=== PATIENT | male | born 1990 | race Caucasian/White ===

== ENCOUNTER → 2016-06-27 | Outpatient (CLI) | payer OTHER ==
[2016-01-01 16:31] VITALS: BP 136/82
[~2016-06-27] MED LIST: ERYT1OIN6 EACHEYE; HYDR-971 PO
--- NOTE | 2016-06-27 16:46 | RAD ---
Testicular ultrasound History: Left scrotal and inguinal pain. Comparison: None. Findings: Right testicle measures 5.6 x 3.3 x 3.0 cm. Right testicle demonstrates normal parenchymal echogenicity. The right epididymis is unremarkable. Left testicle measures 5.5 x 2.9 x 3.1 cm. Left testicle demonstrates normal parenchymal echogenicity. The left epididymis is unremarkable. Doppler imaging demonstrates normal flow to both testicles, without evidence of torsion. Additional grayscale imaging was performed in the left inguinal region without and with Valsalva maneuver. No hernia is identified. Impression: 1. No evidence of testicular mass or torsion. 2. No ultrasound evidence of left inguinal hernia.
== END | disposition home or self-care (01) ==
LOC: US 15:09
PROVIDERS: ATTEND Internal Medicine
DX: R10.30 Lower abdominal pain, unspecified (principal); N50.82 Scrotal pain
CPT/HCPCS: 76870

== ENCOUNTER 2016-10-14 10:48 | Emergency (ER) | payer OTHER ==
[~2016-10-14] VITALS: Ht 170.2 cm; Wt 81.6 kg
[2016-10-14 11:20] VITALS: BP 147/73
[2016-10-14] MEDS ORDERED: KETOROLAC TROMETHAMINE 60 MG/2 ML INJ. IM ONE (11:30)
--- NOTE | 2016-10-14 11:47 | RAD ---
Indication pain for several weeks. AP oblique and lateral views of the right foot were obtained. No acute or significant bony finding is seen. If there is concern for a stress fracture or bone scan may be useful. IMPRESSION: No acute bony finding
[2016-10-14] MEDS ORDERED: NAPR500T PO (11:52)
--- NOTE | 2016-10-14 11:53 | PHYS DOC ---
Past Medical History Past Medical History: Other Additional Past Medical Histor: ADHD Past Surgical History: Other Additional Past Surgical Histo: tumor removal Alcohol Use: None Drug Use: None Adult General Chief Complaint Chief Complaint: FOOT INJURY PAIN HPI HPI Patient is a 26 year old male presents to the emergency department with a two- month history of right foot pain. Patient states he was playing soccer running when he felt a pop in the foot 2 months ago. He states he's had persistent pain is here now seeking further evaluation. Review of Systems Review of Systems Constitutional: Denies fever or chills [] Eyes: Denies change in visual acuity, redness, or eye pain [] HENT: Denies nasal congestion or sore throat [] Respiratory: Denies cough or shortness of breath [] Cardiovascular: No additional information not addressed in HPI [] GI: Denies abdominal pain, nausea, vomiting, bloody stools or diarrhea [] : Denies dysuria or hematuria [] Musculoskeletal: Right foot pain Integument: Denies rash or skin lesions [] Neurologic: Denies headache, focal weakness or sensory changes [] Endocrine: Denies polyuria or polydipsia [] Current Medications Current Medications Current Medications Medications (Trade) Dose Ordered Sig/Manuela Start Time Stop Time Status Last Admin Dose Admin Ketorolac Tromethamine (Toradol Im) 60 mg 1X ONCE 10/14/16 11:30 10/14/16 11:32 DC Allergies Allergies Allergies Coded Allergies Type Severity Reaction Last Updated Verified amoxicillin Allergy Intermediate 11/28/15 Yes clavulanic acid Allergy Intermediate 11/28/15 Yes Physical Exam Physical Exam Extremities: Exam of the right lower extremity: Right knee and right ankle exam unremarkable. The right foot is without swelling, without ecchymosis, without erythema. He does have mild tenderness to palpate medially at the midfoot. Neurovascular is intact distally. Full range of motion all digits without difficulty. Current Patient Data Vital Signs Vital Signs Date Time Temp Pulse Resp B/P (MAP) Pulse Ox O2 Delivery O2 Flow Rate FiO2 10/14/16 11:20 97.7 95 16 96 Room Air 97.7 EKG EKG [] Radiology/Procedures Radiology/Procedures [][facility] [address] [place] [address] IMAGING REPORT Signed PATIENT: KELLY FORREST ACCOUNT: [id number] : 1990 LOCATION: ER AGE: 26 SEX: M EXAM STATUS: REG ER ORD. PHYSICIAN: AFTAB CONTRERAS APRN REASON: pain, medial, proximal PROCEDURE: FOOT RIGHT 3V Indication pain for several weeks. AP oblique and lateral views of the right foot were obtained. No acute or significant bony finding is seen. If there is concern for a stress fracture or bone scan may be useful. IMPRESSION: No acute bony finding DICTATED and SIGNED BY: ATIYA CASANOVA MD DATE: 10/14/16 1143 CC: NON,STAFF; JOSIE PETERS; AFTAB CONTRERAS APRN ~ Course & Med Decision Making Course & Med Decision Making King bandage applied to the right foot per nursing staff. Patient tolerated well. Neurovascular intact distally post application. Pertinent Labs and Imaging studies reviewed. (See chart for details) [] Dragon Disclaimer Dragon Disclaimer This electronic medical record was generated, in whole or in part, using a voice recognition dictation system. Departure Departure Impression: Primary Impression: Foot sprain Disposition: HOME, SELF-CARE Condition: STABLE Referrals: JOSIE PETERS (PCP) Patient Instructions: Foot Sprain Scripts Naproxen (NAPROSYN) 500 Mg Tablet 500 MG PO BID, #20 TAB Prov: AFTAB CONTRERAS APRN 10/14/16 AFTAB CONTRERAS APRN Oct 14, 2016 11:53
== END 2016-10-14 12:00 | disposition home or self-care (01) ==
LOC: ER 10:48
DX: S93.601A Unspecified sprain of right foot, initial encounter (principal); F90.9 Attention-deficit hyperactivity disorder, unspecified type; Z88.1 Allergy status to other antibiotic agents; Z88.8 Allergy status to other drugs, medicaments and biological substances; X58.XXXA Exposure to other specified factors, initial encounter; Y93.66 Activity, soccer; Y92.89 Other specified places as the place of occurrence of the external cause; Y99.8 Other external cause status
CPT/HCPCS: 73630; 96372; 99284; J1885

== ENCOUNTER → 2016-12-26 | Outpatient (CLI) | payer OTHER ==
[~2016-12-26] MED LIST changes: +KETO5DRO24 OD; +NAPR500T PO
--- NOTE | 2016-12-26 16:24 | RAD ---
CT of the right foot Indication: Navicular pain. [place] a "pop" while walking. Technique: CT of the right for without IV contrast with multi renal reformats. Comparison: Plain films from 10/14/2016 Findings: No acute fractures. 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 No arthritic changes. Mild midfoot osteoarthritis. Ankle mortise is intact. No ankle joint effusion. No soft tissue swelling. No evidence of osseous bridging. Impression: 1. No evidence of acute fracture. 2. 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 PQRS Compliance Statement: One or more of the following individualized dose reduction techniques were utilized for this examination: 1. Automated exposure control 2. Adjustment of the mA and/or kV according to patient size 3. Use of iterative reconstruction technique
== END | disposition home or self-care (01) ==
LOC: CT 15:31
PROVIDERS: ATTEND Podiatrist
DX: M79.671 Pain in right foot (principal); Y93.01 Activity, walking, marching and hiking
CPT/HCPCS: 73700

== ENCOUNTER 2017-01-01 16:23 | Emergency (ER) | payer OTHER ==
[~2017-01-01] VITALS: Ht 175.3 cm; Wt 81.6 kg
[~2017-01-01 16:23] MED LIST changes: -KETO5DRO24 OD
[2017-01-01] MEDS ORDERED: TETRACAINE 0.5% OPHTH SOLUTION 4ML BOTTLE. OS ONE (16:45)
[2017-01-01] MEDS ORDERED: FLUORESCEIN OPHTH TEST STRIP. OD ONE (16:45)
--- NOTE | 2017-01-01 16:49 | PHYS DOC ---
Past Medical History Past Medical History: Other Additional Past Medical Histor: ADHD Past Surgical History: Other Additional Past Surgical Histo: tumor removal Alcohol Use: None Drug Use: None Adult General Chief Complaint Chief Complaint: EYE PROBLEMS HPI HPI Patient is a 26 year old L presents to the emergency department with complaints of left eye or dictation. Patient states he was sitting in his truck when something flew from the event and hit in the eye. He states he tried removing feels as if he may have scratched his eye. He has no complaints of blurred vision, double vision, loss of vision, no photosensitivity, no watery discharge. He denies foreign body sensation. Review of Systems Review of Systems Constitutional: Denies fever or chills [] Eyes: Denies change in visual acuity, redness, or eye pain [] HENT: Denies nasal congestion or sore throat [] Respiratory: Denies cough or shortness of breath [] Cardiovascular: No additional information not addressed in HPI [] GI: Denies abdominal pain, nausea, vomiting, bloody stools or diarrhea [] : Denies dysuria or hematuria [] Musculoskeletal: Denies back pain or joint pain [] Integument: Denies rash or skin lesions [] Neurologic: Denies headache, focal weakness or sensory changes [] Endocrine: Denies polyuria or polydipsia [] Current Medications Current Medications Current Medications Medications (Trade) Dose Ordered Sig/Manuela Start Time Stop Time Status Last Admin Dose Admin Fluorescein Sodium (Ful-Senia) 1 strip 1X ONCE 01/01/17 16:45 01/01/17 16:47 DC 01/01/17 16:54 1 STRIP Tetracaine HCl (Tetracaine) 1 drop 1X ONCE 01/01/17 16:45 01/01/17 16:47 DC 01/01/17 16:54 1 DROP Allergies Allergies Allergies Coded Allergies Type Severity Reaction Last Updated Verified amoxicillin Allergy Intermediate 11/28/15 Yes clavulanic acid Allergy Intermediate 11/28/15 Yes Physical Exam Physical Exam Constitutional: Well developed, well nourished, no acute distress, non-toxic appearance. [] HENT: Normocephalic, atraumatic, bilateral external ears normal, oropharynx moist, no oral exudates, nose normal. [] Eyes: PERRLA, EOMI without pain, conjunctiva normal, funduscopic exam is benign , sclera clear, no discharge Neck: Normal range of motion, no tenderness, supple, no stridor. [] Cardiovascular:Heart rate regular rhythm, no murmur [] Lungs & Thorax: Bilateral breath sounds clear to auscultation [] Abdomen: Bowel sounds normal, soft, no tenderness, no masses, no pulsatile masses. [] Skin: Warm, dry, no erythema, no rash. [] Back: No tenderness, no CVA tenderness. [] Extremities: No tenderness, no cyanosis, no clubbing, ROM intact, no edema. [] Neurologic: Alert and oriented X 3, normal motor function, normal sensory function, no focal deficits noted. [] Psychologic: Affect normal, judgement normal, mood normal. [] EKG EKG [] Radiology/Procedures Radiology/Procedures Procedure note: Left eye anesthetized with tetracaine, upper lid everted visualized for foreign body noted which are noted. The eye was stained with fluorescein, Su lamp utilized, no pooling, no corneal abrasion.[] Course & Med Decision Making Course & Med Decision Making Pertinent Labs and Imaging studies reviewed. (See chart for details) [] Dragon Disclaimer Dragon Disclaimer This electronic medical record was generated, in whole or in part, using a voice recognition dictation system. Departure Departure Impression: Primary Impression: Eye irritation Disposition: 01 HOME, SELF-CARE Condition: STABLE Referrals: JOSIE PETERS (PCP) Patient Instructions: Eyedrops Scripts Ketorolac Tromethamine (KETOROLAC TROMETHAMINE) 5 Ml Drops 1 DROP OD QID Y for eye pain, #5 ML Prov: AFTAB CONTRERAS APRN 01/01/17 AFTAB CONTRERAS APRN Jan 01, 2017 16:49
[2017-01-01 16:54] VITALS: BP 144/92
[2017-01-01] MEDS ORDERED: KETO5DRO24 OD (16:59)
== END 2017-01-01 17:03 | disposition home or self-care (01) ==
LOC: ER 16:23
DX: H57.8 Other specified disorders of eye and adnexa (principal); F90.9 Attention-deficit hyperactivity disorder, unspecified type; Z88.1 Allergy status to other antibiotic agents; Z88.8 Allergy status to other drugs, medicaments and biological substances
CPT/HCPCS: 99283

== ENCOUNTER 2017-08-14 12:48 | Emergency (ER) | payer OTHER ==
[2017-08-14] MEDS: CYCLOBENZAPRINE 10 MG TABLET. PO (13:55)
== END 2017-08-14 14:40 | disposition home or self-care (01) ==
LOC: ER 12:48
DX: S16.1XXA Strain of muscle, fascia and tendon at neck level, initial encounter (principal); S29.012A Strain of muscle and tendon of back wall of thorax, initial encounter; F90.9 Attention-deficit hyperactivity disorder, unspecified type; V43.52XA Car driver injured in collision with other type car in traffic accident, initial encounter; Y93.89 Activity, other specified; Y99.8 Other external cause status; Y92.410 Unspecified street and highway as the place of occurrence of the external cause
CPT/HCPCS: 72040; 72072; 99284